=== PATIENT | male | born 1930 | race Caucasian/White ===

== ENCOUNTER 2019-06-07 06:02 | Emergency (ER) | payer MEDICARE ==
[2019-06-07] MEDS ORDERED: Acetaminophen 500 MG TAB ONE (08:18)
--- NOTE | 2019-06-07 08:20 | RAD ---
RIGHT WRIST THREE VIEWS: INDICATIONS: Fall with right wrist pain. COMPARISON: None. FINDINGS: There is an instrumented and healed distal radial shaft fracture. 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 N o acute fracture or subluxation is grossly evident. IMPRESSION: 1. No acute osseous abnormality. 2. 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 POS: BH
[2019-06-07 09:23] LABS: Bilirubin Small (Negative); Blood, Urine Large (Negative); Glucose, Urine (Dipstick) Negative (Negative); Leukocyte Negative (Negative); Nitrite Negative (Negative); Protein, Urine (Dipstick) 100 mg/dL (Neg-Trace); Urobilinogen 0.2 mg/dL (Less than 2)
[2019-06-07 09:24] LABS: Clarity Hazy (Clear)
[2019-06-07 09:36] LABS: Bacteria/HPF 1+ HPF (None Seen); RBC/HPF Greater than 50 HPF (0-3); Squamous Epithelial 0-3 HPF (0-3); Triple Phosphate Crystal Rare HPF (None Seen); WBC/HPF 21-50 HPF (0-3)
== END 2019-06-07 11:44 | disposition home or self-care (01) ==
LOC: ERS 06:02
DX: S63.501A Unspecified sprain of right wrist, initial encounter (principal); R31.9 Hematuria, unspecified; I48.91 Unspecified atrial fibrillation; E11.9 Type 2 diabetes mellitus without complications; K21.9 Gastro-esophageal reflux disease without esophagitis; E78.5 Hyperlipidemia, unspecified; I10 Essential (primary) hypertension; F32.9 Major depressive disorder, single episode, unspecified; Z79.899 Other long term (current) drug therapy; Z86.73 Personal history of transient ischemic attack (TIA), and cerebral infarction without residual deficits; Z79.1 Long term (current) use of non-steroidal anti-inflammatories (NSAID); W19.XXXA Unspecified fall, initial encounter
CPT/HCPCS: 81003; 81015; 87086